=== PATIENT | female | born 1985 | race Two or more races ===

== ENCOUNTER 2024-08-03 11:35 | Emergency (ER) | payer OTHER ==
[~2024-08-03] VITALS: Ht 160 cm; Wt 49.9 kg
[2024-08-03 12:52] VITALS: BP 96/70; O2SAT 99
[2024-08-03] MEDS ORDERED: DICLOFENAC SODI75 MG PO (18:28)
== END 2024-08-03 20:30 | disposition home or self-care (01) ==
LOC: ER 11:37
DX: G89.11 Acute pain due to trauma (principal); S00.83XA Contusion of other part of head, initial encounter; W19.XXXA Unspecified fall, initial encounter; Y93.89 Activity, other specified; Y92.89 Other specified places as the place of occurrence of the external cause